=== PATIENT | male | born 1980 | race Caucasian/White ===

== ENCOUNTER 2024-04-05 10:58 | Emergency (ER) | payer OTHER ==
[2024-04-05] MEDS: predniSONE 20 MG Tab PO ONE (11:52)
== END 2024-04-05 11:55 | disposition home or self-care (01) ==
LOC: MW.ED 10:58
DX: M79.644 Pain in right finger(s) (principal); K21.9 Gastro-esophageal reflux disease without esophagitis; Z79.899 Other long term (current) drug therapy
CPT/HCPCS: 99283; A9270